=== PATIENT | male | born 1990 | race Caucasian/White ===

== ENCOUNTER 2018-07-11 14:22 | Emergency (ER) | payer SELFPAY ==
[2018-07-11 14:26] VITALS: BP 155/95; PULSE 94; RESP 16; TEMP 36.8; O2SAT 99; BMI 35.9
--- NOTE | 2018-07-11 15:03 | ED_ITS ---
HPI - Back Pain/Injury <Shara Redman PA-C - Last Filed: 07/11/18 21:37> General Chief Complaint: Back Pain/Injury Stated Complaint: PULLED SOMETHING IN BACK Time Seen by Provider: 07/11/18 14:37 Source: patient Mode of arrival: ambulatory Limitations: no limitations History of Present Illness HPI Narrative: This 27-year-old male comes in due to back pain that started yesterday after he left the tool box at home. He states that he has some degree of chronic back pain after he had multiple lumbar fractures 2 years ago ( did not need surgery). He states he felt a popping or pulling sensation in the right side of his back. He states pain is more sharp with standing, or with moving from sit to stand, lifting, sitting with his back stretched out. Better lying down and leaning forward a little bit. He states that the pain radiates into gluteal area on the right side but not down his leg. He states that his left leg feels ??, but not weak or numb. He states it is painful to walk but does not have any difficulty due to weakness. He denies any groin numbness, difficulty urinating or bowel changes. Related Data Previous Rx's Medication Instructions Recorded cyclobenzaprine 10 mg PO Q8HR PRN #15 tab 07/11/18 meloxicam [Mobic] 15 mg PO DAILY #10 tab 07/11/18 Allergies Allergy/AdvReac Type Severity Reaction Status Date / Time No Known Drug Allergies Allergy Verified 07/11/18 14:26 Exam <Shara Redman PA-C - Last Filed: 07/11/18 21:37> Narrative Exam Narrative: GENERAL APPEARANCE: Patient sitting comfortably, in no distress. PULMONARY: Lungs clear to auscultation bilaterally CV: Regular rhythm regular without murmur, normal S1 and S2, no S3 or S4 MUSCULOSKELETAL: No point tenderness over the lumbar spine. Full AROM of trunk with some and point tenderness on lateral bend and hyperextension. Normal sit: stand and gait. Lower extremity strength 5/5 bilateral hip flexors, knee extensors, foot plantar flexion. Negative modified straight leg raise NEUROLOGIC: Bilateral patellar and Achilles DTRs 2+, lower extremity sensation is grossly intact VASCULAR: Ft are warm and pink with intact pedal pulses Initial Vital Signs Initial Vital Signs: Vital Signs Temperature 98.2 F 07/11/18 14:26 Pulse Rate 94 H 07/11/18 14:26 Respiratory Rate 16 07/11/18 14:26 Blood Pressure 155/95 H 07/11/18 14:26 Pulse Oximetry 99 07/11/18 14:26 <Lorne Briceño DO - Last Filed: 07/18/18 18:53> Initial Vital Signs Initial Vital Signs: Vital Signs Temperature 98.2 F 07/11/18 14:26 Pulse Rate 94 H 07/11/18 14:26 Respiratory Rate 16 07/11/18 14:26 Blood Pressure 155/95 H 07/11/18 14:26 Pulse Oximetry 99 07/11/18 14:26 Course <Shara Redman PA-C - Last Filed: 07/11/18 21:37> Vital Signs - 8 hr 07/11/18 14:26 07/11/18 15:45 Temperature 98.2 F Pulse Rate 94 H 86 Respiratory Rate 16 18 Blood Pressure 155/95 H 151/92 H Pulse Oximetry 99 99 <Lorne Briceño DO - Last Filed: 07/18/18 18:53> Vital Signs - 8 hr 07/11/18 14:26 07/11/18 15:45 Temperature 98.2 F Pulse Rate 94 H 86 Respiratory Rate 16 18 Blood Pressure 155/95 H 151/92 H Pulse Oximetry 99 99 Discharge Plan Departure Patient Disposition: Home Clinical Impression: Strain of lumbar region, Muscle spasm Discharge Date/Time: 07/11/18 15:46 Interventions: ED Discharge Assessment Last Done: 07/11/18 15:45 Instructions: DI for Back Spasm, DI for Back Strain or Sprain Activity Restrictions/Additional Instructions: Please return as we talked about if you have any acutely worsening symptoms such as sudden onset of worsening pain, or new symptoms such as weakness or inability to urinate. Otherwise, gentle walking is okay but avoid work and heavy lifting. Take the once daily anti-inflammatory/pain reliever meloxicam, and you can add the muscle relaxant cyclobenzaprine as needed (do not take it and drive as it can make you sleepy). You can also take Tylenol with these medicines and use any [id number] topical pain relievers that you would like such as lidocaine patches. Please call your insurance today and let them know you were seen in the emergency room and need a referral to a local primary care provider to follow up in a few days, and if you are unable to get in, you can also follow up at the walk-in clinic at [facility] for recheck as you may need further testing or a referral (i.e. for PT) if you are not feeling better. Prescriptions: New cyclobenzaprine 10 mg tablet 10 mg PO Q8HR PRN (Reason: muscle spasm) Qty: 15 RF: 0 meloxicam [Mobic] 15 mg tablet 15 mg PO DAILY Qty: 10 RF: 0 Stand Alone Forms: Work/School Restrictions <Lorne Briceño DO - Last Filed: 07/18/18 18:53> Cosign ED Attending Karenaature Attestation: I was immediately available in the department for consultation. Documentation has been reviewed. I agree with assessment and plan.
[2018-07-11 15:45] VITALS: BP 151/92; PULSE 86; RESP 18; O2SAT 99
== END 2018-07-11 15:46 | disposition home or self-care (01) ==
PROVIDERS: Emergency Provider Internal Medicine
DX: S39.012A Strain of muscle, fascia and tendon of lower back, initial encounter (principal); M62.830 Muscle spasm of back; X50.0XXA Overexertion from strenuous movement or load, initial encounter
CPT/HCPCS: 99282

== ENCOUNTER 2018-08-01 10:29 | Emergency (ER) | payer SELFPAY ==
[2018-08-01 10:30] VITALS: BP 160/97; PULSE 98; RESP 14; TEMP 36.1; O2SAT 100; BMI 33.0
--- NOTE | 2018-08-01 11:46 | ED.EXTPRO ---
HPI - Extremity Problem General Chief complaint: Extremity Problem,Nontraumatic Stated complaint: NUMBNESS IN ARMS AND HANDS Time Seen by Provider: 08/01/18 11:32 Source: patient Mode of arrival: ambulatory Limitations: no limitations History of Present Illness HPI Narrative: This is a 27-year-old male who comes in with complaint of a week and a half of pain as well as numbness and pins and needle sensation in both upper extremities. 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 Patient denies any back pain he, he denies any trauma to his back recently. He has a remote history of an L2-3 for vertebral fractures. Patient denies any fecal or urinary incontinence. He denies any symptoms in his lower extremities. He states it feels like pins and needles or would your hands have been out in the cold for a long time. I have runs up to about just above the elbow on both sides equally, patient states the weakness seems equal. 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 He states that the symptoms started after he was working on his car and had been lying on his back. Patient has not had similar symptoms in the past no fevers, no headaches, no chest pain or shortness of breath. No GI or urinary symptoms otherwise. Related Data Previous Rx's Medication Instructions Recorded gabapentin 100 mg PO TID #30 cap 08/01/18 prednisone 50 mg PO DAILY #7 tab 08/01/18 Allergies Allergy/AdvReac Type Severity Reaction Status Date / Time No Known Drug Allergies Allergy Verified 08/01/18 10:38 Review of Systems Review of Systems All systems reviewed & are unremarkable except as noted in HPI and below Constitutional Denies fever(s), Denies headache(s) and Reports weakness ENT Ears, Nose, Mouth, and Throat: Denies headache(s) and Denies neck pain Cardiovascular Denies chest pain, Denies edema and Denies dyspnea Respiratory Denies cough, Denies dyspnea and Denies wheezing Gastrointestinal Gastrointestinal: Denies abdominal pain, Denies change in bowel habits, Denies fecal incontinence, Denies diarrhea, Denies nausea and Denies vomiting Genitourinary Denies urinary incontinence Musculoskeletal Reports as per HPI, Denies abnormal gait, Denies back pain, Denies myalgias, Denies arthralgias, Denies limited range of motion, Reports muscle weakness, Denies neck pain, Reports numbness and Reports tingling (pins and needles) Integumentary/Breasts Denies rash Neurologic Denies abnormal gait, Denies headache(s), Reports numbness, Reports tingling (pins and needles), Reports paresthesias and Reports weakness Allergic/Immunologic Denies wheezing [facility] Social History Smoking Status: Current every day smoker Exam Narrative Exam Narrative: GENERAL: Alert and oriented x three, well-nourished, well-appearing male in mild distress. HEENT: Head normocephalic, atraumatic, EOMI, pupils reactive, face symmetric, moist mucous membranes NECK: Supple, full range of motion CARDIOVASCULAR: Regular rate and rhythm without murmurs, rubs or gallops. RESPIRATORY: Breath sounds equal bilaterally, no wheezes rales or rhonchi. ABDOMEN: Soft, nontender. Normoactive bowel sounds all 4 quadrants. No guarding or rebound, rigidity, no mass : No CVA tenderness BACK: No cervical, thoracic or lumbar vertebral point tenderness. No erythema or skin changes. Patient has normal range of motion of upper extremities and hands. Patient's gait is normal. Muscle strength is 5/5 in upper extremities, with push and pull, plan checker are equal but seems slightly decreased. DTRs are 2/4 and lower extremities. 2+ radial pulses bilaterally. Patient has sensation to touch equally in the upper extremities but states that it feels different than touch in the lower extremities. EXTREMITIES: Normal range of motion, no clubbing or edema. See above NEUROLOGICAL: Cranial nerves II through XII grossly intact. Moving all extremities SKIN: Warm, dry, no petechiae, no rashes or lesions. Initial Vital Signs Initial Vital Signs: Vital Signs Temperature 97.0 F L 08/01/18 10:30 Pulse Rate 98 H 08/01/18 10:30 Respiratory Rate 14 08/01/18 10:30 Blood Pressure 160/97 H 08/01/18 10:30 Pulse Oximetry 100 08/01/18 10:30 Course Orders Ordered: ED Orders 08/01/18 11:50 CT thoracic spine wo con Stat 08/01/18 12:10 Basic Metabolic Panel Stat Complete Blood Count AUTO DIFF Stat Vital Signs - 8 hr 08/01/18 10:30 08/01/18 13:22 Temperature 97.0 F L Pulse Rate 98 H 88 Respiratory Rate 14 20 Blood Pressure 160/97 H 152/107 H Pulse Oximetry 100 98 MDM - Extremity (Nontraumatic) Lab Data Result diagrams: 08/01/18 12:10 08/01/18 12:10 Lab Results 08/01/18 08/01/18 Range/Units 12:10 12:10 WBC 6.8 (4.5-11.0) X10^3/uL RBC 5.46 (4.5-5.9) X10^6/uL Hgb 16.1 (13.5-17.5) g/dL Hct 48.1 (41-53) % MCV 88.2 (80-100) fL MCH 29.6 (26-34) PG MCHC 33.5 (30-36) % RDW 13.1 (11.6-14.8) % Plt Count 223 (150-400) X10^3/uL Neut % (Auto) 58.4 (50-75) % Lymph % (Auto) 30.9 (25-40) % [place] % (Auto) 9.0 (3-14) % Eos % (Auto) 1.0 L (2-4) % Baso % (Auto) 0.7 (0-2) % Neut # (Auto) 4000 (8925-7687) /uL Sodium 142 (137-145) mmol/L Potassium 4.3 (3.4-5.1) mmol/L Chloride 104 (98-107) mmol/L Carbon Dioxide 26 (22-32) mmol/L BUN 13 (9-20) mg/dL Creatinine 0.70 (0.66-1.25) mg/dL Estimated GFR > 60.0 (>60) mL/min BUN/Creatinine Ratio 18.6 (6-22) Glucose 101 H (70-100) mg/dL Calcium 9.1 (8.4-10.2) mg/dL Imaging Data CT t spine: Radiologist's impression: [address] [address] [address] Scan Report Signed Patient: ANTHONY NICHOLS SMR#: [id number] : 1990Acct:[id number] Age/Sex: 27 / MDate of Service: 08/01/18 Loc: ED Accession Number: [id number] Procedure: CT thoracic spine wo con Ordering Provider: Jazmín Judge D.O. PROCEDURE: CT THORACIC SPINE WO CON INDICATIONS: numbness/weakness of hands times 1.5 weeks bilaterally TECHNIQUE: Noncontrast 3 mm thick sections acquired through the region of interest in the thoracic spine. Sagittal and coronal reformats were then constructed. For radiation dose reduction, the following was used: automated exposure control. COMPARISON: None. FINDINGS: Image quality: Excellent. Bones: There is normal overall bony alignment. No acute vertebral body compression fractures. No suspicious sclerotic or lytic bony lesions. There is moderate degenerative disc disease at T9-T10, and mild degenerative disc disease at T8-T9 and T10-T11. There is mild central canal stenosis at T9-T10. No foraminal stenosis. Multiple Schmorl's nodes are seen involving the superior endplate of the T6, T8, T10 and T11 and inferior endplate of T8 and T9. Soft tissues: No paravertebral masses or hematomas. Visualized posteromedial lungs appear clear. IMPRESSION: 1. Degenerative disc disease seen lower thoracic spine, moderate at T9-T10, and mild at T8-T9 and T10-T11. 2. Mild central canal stenosis at T9-T10. 3. No foramina stenosis. If clinical symptoms persist or clinical suspicion for pathology is high, MRI is suggested for further evaluation. Dictated by: Darlene Edouard M.D. on 08/01/2018 at 12:16 Approved by: Darlene Edouard M.D. on 08/01/2018 at 12:22 MDM Narrative Medical decision making narrative: Patient has equal neuropathy and weakness in bilateral upper extremities. He has had no recent trauma, he has a remote history of vertebral fractures L2-3 and 4. He has no pain in his back but with his symptomology be equal in both extremities and up the majority of the arm I would get imaging of his back. Plan to check CBC and CMP to include sodium level. Labs are negative, CT shows possible mild impingement but not consistent with degree of symptoms plan for referral to orthopedic surgery, short-term steroids for symptomatology and for further evaluation with EMG as patient would likely have neuropathy from a olecranon on or higher up nerve impingement. Patient encouraged to return to ER if symptoms worsening quickly or if cannot get into orthopedics for follow up. Given rx for prednisone to see if this improves symptoms and gabapentin for relief from pins/needles feeling. Discharge Plan Departure Patient Disposition: Home Clinical Impression: Radiculopathy Discharge Date/Time: 08/01/18 13:24 Interventions: ED Discharge Assessment Last Done: 08/01/18 13:22 Instructions: DI for Cervical Radiculopathy, DI for Peripheral Neuropathy Activity Restrictions/Additional Instructions: Call for an appointment with orthopedic surgery for further evaluation and testing. Take steroids until gone. Take gabapentin three times daily for numbness/pain. Return to the ER for worsening symptoms, decreased collar sewer, decreased or worsening loss of sensation, symptoms that are extending to the lower extremities, new back or neck pain or other new or concerning symptoms. Prescriptions: New prednisone 50 mg tablet 50 mg PO DAILY Qty: 7 RF: 0 gabapentin 100 mg capsule 100 mg PO TID Qty: 30 RF: 0 Referrals: Caitie Bernstein MD [Physician] -
--- NOTE | 2018-08-01 11:50 | DI.CT.S_ITS ---
PROCEDURE: CT THORACIC SPINE WO CON INDICATIONS: numbness/weakness of hands times 1.5 weeks bilaterally TECHNIQUE: Noncontrast 3 mm thick sections acquired through the region of interest in the thoracic spine. Sagittal and coronal reformats were then constructed. For radiation dose reduction, the following was used: automated exposure control. COMPARISON: None. FINDINGS: Image quality: Excellent. Bones: There is normal overall bony alignment. No acute vertebral body compression fractures. No suspicious sclerotic or lytic bony lesions. There is moderate degenerative disc disease at T9-T10, and mild degenerative disc disease at T8-T9 and T10-T11. There is mild central canal stenosis at T9-T10. No foraminal stenosis. Multiple Schmorl's nodes are seen involving the superior endplate of the T6, T8, T10 and T11 and inferior endplate of T8 and T9. Soft tissues: No paravertebral masses or hematomas. Visualized posteromedial lungs appear clear. IMPRESSION: 1. Degenerative disc disease seen lower thoracic spine, moderate at T9-T10, and mild at T8-T9 and T10-T11. 2. Mild central canal stenosis at T9-T10. 3. No foramina stenosis. If clinical symptoms persist or clinical suspicion for pathology is high, MRI is suggested for further evaluation. Dictated by: Darlene Edouard M.D. on 08/01/2018 at 12:16 Approved by: Darlene Edouard M.D. on 08/01/2018 at 12:22
--- NOTE | 2018-08-01 11:54 | ED_ITS ---
HPI - Extremity Problem General Chief complaint: Extremity Problem,Nontraumatic Stated complaint: NUMBNESS IN ARMS AND HANDS Time Seen by Provider: 08/01/18 11:32 Source: patient Mode of arrival: ambulatory Limitations: no limitations History of Present Illness HPI Narrative: This is a 27-year-old male who comes in with complaint of a week and a half of pain as well as numbness and pins and needle sensation in both upper extremities. 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 Patient denies any back pain he, he denies any trauma to his back recently. He has a remote history of an L2-3 for vertebral fractures. Patient denies any fecal or urinary incontinence. He denies any symptoms in his lower extremities. He states it feels like pins and needles or would your hands have been out in the cold for a long time. I have runs up to about just above the elbow on both sides equally, patient states the weakness seems equal. 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 He states that the symptoms started after he was working on his car and had been lying on his back. Patient has not had similar symptoms in the past no fevers, no headaches , no chest pain or shortness of breath. No GI or urinary symptoms otherwise. Related Data Previous Rx's Medication Instructions Recorded gabapentin 100 mg PO TID #30 cap 08/01/18 prednisone 50 mg PO DAILY #7 tab 08/01/18 Allergies Allergy/AdvReac Type Severity Reaction Status Date / Time No Known Drug Allergies Allergy Verified 08/01/18 10:38 Review of Systems Review of Systems All systems reviewed & are unremarkable except as noted in HPI and below Constitutional Denies fever(s), Denies headache(s) and Reports weakness ENT Ears, Nose, Mouth, and Throat: Denies headache(s) and Denies neck pain Cardiovascular Denies chest pain, Denies edema and Denies dyspnea Respiratory Denies cough, Denies dyspnea and Denies wheezing Gastrointestinal Gastrointestinal: Denies abdominal pain, Denies change in bowel habits, Denies fecal incontinence, Denies diarrhea, Denies nausea and Denies vomiting Genitourinary Denies urinary incontinence Musculoskeletal Reports as per HPI, Denies abnormal gait, Denies back pain, Denies myalgias, Denies arthralgias, Denies limited range of motion, Reports muscle weakness, Denies neck pain, Reports numbness and Reports tingling (pins and needles) Integumentary/Breasts Denies rash Neurologic Denies abnormal gait, Denies headache(s), Reports numbness, Reports tingling ( pins and needles), Reports paresthesias and Reports weakness Allergic/Immunologic Denies wheezing [facility] Social History Smoking Status: Current every day smoker Exam Narrative Exam Narrative: GENERAL: Alert and oriented x three, well-nourished, well- appearing male in mild distress. HEENT: Head normocephalic, atraumatic, EOMI, pupils reactive, face symmetric, moist mucous membranes NECK: Supple, full range of motion CARDIOVASCULAR: Regular rate and rhythm without murmurs, rubs or gallops. RESPIRATORY: Breath sounds equal bilaterally, no wheezes rales or rhonchi. ABDOMEN: Soft, nontender. Normoactive bowel sounds all 4 quadrants. No guarding or rebound, rigidity, no mass : No CVA tenderness BACK: No cervical, thoracic or lumbar vertebral point tenderness. No erythema or skin changes. Patient has normal range of motion of upper extremities and hands. Patient's gait is normal. Muscle strength is 5/5 in upper extremities, with push and pull, spiral tube winder are equal but seems slightly decreased. DTRs are 2/ 4 and lower extremities. 2+ radial pulses bilaterally. Patient has sensation to touch equally in the upper extremities but states that it feels different than touch in the lower extremities. EXTREMITIES: Normal range of motion, no clubbing or edema. See above NEUROLOGICAL: Cranial nerves II through XII grossly intact. Moving all extremities SKIN: Warm, dry, no petechiae, no rashes or lesions. Initial Vital Signs Initial Vital Signs: Vital Signs Temperature 97.0 F L 08/01/18 10:30 Pulse Rate 98 H 08/01/18 10:30 Respiratory Rate 14 08/01/18 10:30 Blood Pressure 160/97 H 08/01/18 10:30 Pulse Oximetry 100 08/01/18 10:30 Course Orders Ordered: ED Orders 08/01/18 11:50 CT thoracic spine wo con Stat 08/01/18 12:10 Basic Metabolic Panel Stat Complete Blood Count AUTO DIFF Stat Vital Signs - 8 hr 08/01/18 10:30 08/01/18 13:22 Temperature 97.0 F L Pulse Rate 98 H 88 Respiratory Rate 14 20 Blood Pressure 160/97 H 152/107 H Pulse Oximetry 100 98 MDM - Extremity (Nontraumatic) Lab Data Result diagrams: 08/01/18 12:10 08/01/18 12:10 Lab Results 08/01/18 08/01/18 Range/Units 12:10 12:10 WBC 6.8 (4.5-11.0) X10^3/uL RBC 5.46 (4.5-5.9) X10^6/uL Hgb 16.1 (13.5-17.5) g/dL Hct 48.1 (41-53) % MCV 88.2 (80-100) fL MCH 29.6 (26-34) PG MCHC 33.5 (30-36) % RDW 13.1 (11.6-14.8) % Plt Count 223 (150-400) X10^3/uL Neut % (Auto) 58.4 (50-75) % Lymph % (Auto) 30.9 (25-40) % [place] % (Auto) 9.0 (3-14) % Eos % (Auto) 1.0 L (2-4) % Baso % (Auto) 0.7 (0-2) % Neut # (Auto) 4000 (7095-7987) /uL Sodium 142 (137-145) mmol/L Potassium 4.3 (3.4-5.1) mmol/L Chloride 104 (98-107) mmol/L Carbon Dioxide 26 (22-32) mmol/L BUN 13 (9-20) mg/dL Creatinine 0.70 (0.66-1.25) mg/dL Estimated GFR > 60.0 (>60) mL/min BUN/Creatinine Ratio 18.6 (6-22) Glucose 101 H (70-100) mg/dL Calcium 9.1 (8.4-10.2) mg/dL Imaging Data CT t spine: Radiologist's impression: [address] [address] [address] Scan Report Signed Patient: ANTHONY NICHOLS SMR#: [id number] : 1990Acct:[id number] Age/Sex: 27 / MDate of Service: 08/01/18 Loc: ED Accession Number: [id number] Procedure: CT thoracic spine wo con Ordering Provider: Jazmín Judge D.O. PROCEDURE: CT THORACIC SPINE WO CON INDICATIONS: numbness/weakness of hands times 1.5 weeks bilaterally TECHNIQUE: Noncontrast 3 mm thick sections acquired through the region of interest in the thoracic spine. Sagittal and coronal reformats were then constructed. For radiation dose reduction, the following was used: automated exposure control. COMPARISON: None. FINDINGS: Image quality: Excellent. Bones: There is normal overall bony alignment. No acute vertebral body compression fractures. No suspicious sclerotic or lytic bony lesions. There is moderate degenerative disc disease at T9-T10, and mild degenerative disc disease at T8- T9 and T10-T11. There is mild central canal stenosis at T9-T10. No foraminal stenosis. Multiple Schmorl's nodes are seen involving the superior endplate of the T6, T8, T10 and T11 and inferior endplate of T8 and T9. Soft tissues: No paravertebral masses or hematomas. Visualized posteromedial lungs appear clear. IMPRESSION: 1. Degenerative disc disease seen lower thoracic spine, moderate at T9-T10, and mild at T8-T9 and T10-T11. 2. Mild central canal stenosis at T9-T10. 3. No foramina stenosis. If clinical symptoms persist or clinical suspicion for pathology is high, MRI is suggested for further evaluation. Dictated by: Darlene Edouard M.D. on 08/01/2018 at 12:16 Approved by: Darlene Edouard M.D. on 08/01/2018 at 12:22 MDM Narrative Medical decision making narrative: Patient has equal neuropathy and weakness in bilateral upper extremities. He has had no recent trauma, he has a remote history of vertebral fractures L2-3 and 4. He has no pain in his back but with his symptomology be equal in both extremities and up the majority of the arm I would get imaging of his back. Plan to check CBC and CMP to include sodium level. Labs are negative, CT shows possible mild impingement but not consistent with degree of symptoms plan for referral to orthopedic surgery, short-term steroids for symptomatology and for further evaluation with EMG as patient would likely have neuropathy from a olecranon on or higher up nerve impingement. Patient encouraged to return to ER if symptoms worsening quickly or if cannot get into orthopedics for follow up. Given rx for prednisone to see if this improves symptoms and gabapentin for relief from pins/needles feeling. Discharge Plan Departure Patient Disposition: Home Clinical Impression: Radiculopathy Discharge Date/Time: 08/01/18 13:24 Interventions: ED Discharge Assessment Last Done: 08/01/18 13:22 Instructions: DI for Cervical Radiculopathy, DI for Peripheral Neuropathy Activity Restrictions/Additional Instructions: Call for an appointment with orthopedic surgery for further evaluation and testing. Take steroids until gone. Take gabapentin three times daily for numbness/pain. 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 Prescriptions: New prednisone 50 mg tablet 50 mg PO DAILY Qty: 7 RF: 0 gabapentin 100 mg capsule 100 mg PO TID Qty: 30 RF: 0 Referrals: Caitie Bernstein MD [Physician] -
[2018-08-01 12:18] LABS: Add Manual Diff / Slide Review NO; Basophils Percent Auto 0.7 % (0-2); Hematocrit 48.1 % (41-53); Hemoglobin 16.1 g/dL (13.5-17.5); Lymphocytes Percent Auto 30.9 % (25-40); Mean Corpuscular HGB Conc 33.5 % (30-36); Mean Corpuscular Hemoglobin 29.6 PG (26-34); Mean Corpuscular Volume 88.2 fL (80-100); Neutrophils Absolute Auto 4000 /uL (3000-5900); Neutrophils Percent Auto 58.4 % (50-75); Platelet Count 223 X10^3/uL (150-400); Red Blood Cell Count 5.46 X10^6/uL (4.5-5.9); Red Cell Distribution Width 13.1 % (11.6-14.8); White Blood Cell Count 6.8 X10^3/uL (4.5-11.0)
--- NOTE | 2018-08-01 12:29 | PC.NURSE ---
pt states he has difficulty holding on to objects, hands give out and I am dropping things randomly
[2018-08-01 12:31] LABS: BUN Creatinine Ratio 18.6 (6-22); Blood Urea Nitrogen 13 mg/dL (9-20); Calcium 9.1 mg/dL (8.4-10.2); Carbon Dioxide 26 mmol/L (22-32); Chloride 104 mmol/L (98-107); Estimated Glomerular Filt Rate > 60.0 mL/min (>60); Glucose 101 mg/dL (70-100); HEMOLYSIS < 15 (0-50); Potassium 4.3 mmol/L (3.4-5.1); Sodium 142 mmol/L (137-145)
[2018-08-01 13:22] VITALS: BP 152/107; PULSE 88; RESP 20; O2SAT 98
== END 2018-08-01 13:24 | disposition home or self-care (01) ==
PROVIDERS: Emergency Provider Emergency Medicine
DX: M54.10 Radiculopathy, site unspecified (principal)
CPT/HCPCS: 72128; 80048; 85025; 99282; 99284